=== PATIENT | female | born 1990 | race Caucasian/White ===

== ENCOUNTER 2020-03-01 21:44 | Outpatient (REF) | payer SELFPAY ==
[2020-03-04 10:10] LABS: SARS-CoV-2 RNA Undetected (Undetected); SARS-CoV-2 Specimen Source Nasal
== END 2020-03-01 22:04 ==
LOC: NCHCN 21:44
PROVIDERS: Visit Provider Family Medicine
DX: Z20.828 Contact with and (suspected) exposure to other viral communicable diseases (principal)
CPT/HCPCS: U0003

== ENCOUNTER 2021-02-22 09:46 | Outpatient (CLI) | payer MEDICAID, SELFPAY ==
--- NOTE | 2021-02-22 08:00 | DI.RAD_ITS ---
Exam(s) XR FOOT RT COMPLETE EXAM: XR FOOT RT COMPLETE CLINICAL HISTORY: R foot injury. TECHNIQUE: 2D digital imaging was performed of the right foot. Three images were obtained. AP, obl ique and lateral views were obtained. COMPARISON: CR XR FOOT COMPLETE MIN 3V RT from 02/15/2021 CR XR FOOT COMPLETE MIN 3V RT from 02/15/2021 FINDINGS: BONES: There has been no change in alignment of the comminuted fractures involving the distal aspects of the right 3rd and 4th metatarsals. No new fractures are seen. No bony destructive lesion is see n. JOINTS: No dislocation present. SOFT TISSUE: Normal. IMPRESSION: Stable fractures involving the right 3rd and 4th metatarsals. DATA REPOSITORY: RADIATION DOSE DELIVERED:
== END 2021-02-22 09:47 | disposition home or self-care (01) ==
LOC: DIORS 09:47
PROVIDERS: Referring Provider Family Medicine; Visit Provider Physician Assistant
DX: S92.334D Nondisplaced fracture of third metatarsal bone, right foot, subsequent encounter for fracture with routine healing (principal); S92.344D Nondisplaced fracture of fourth metatarsal bone, right foot, subsequent encounter for fracture with routine healing
CPT/HCPCS: 73630

== ENCOUNTER 2021-03-11 08:42 | Outpatient (CLI) | payer MEDICAID, SELFPAY ==
--- NOTE | 2021-03-11 07:45 | DI.RAD_ITS ---
Exam(s) XR FOOT RT COMPLETE EXAM: XR FOOT RT COMPLETE CLINICAL HISTORY: R metatarsal fractures TECHNIQUE: COMPARISON: CR XR FOOT RT COMPLETE from 02/22/2021 FINDINGS: Three views were obtained. Previous described fractures 3rd and 4th metatarsal heads are again noted and appear to be healing in position, additionally a nondisplaced 2nd metatarsal head fracture is no w noted and appears to be healing as well. IMPRESSION: RADIATION DOSE DELIVERED: Total DLP
== END 2021-03-11 08:43 | disposition home or self-care (01) ==
LOC: DIORS 08:42
PROVIDERS: PCP Family Medicine; Referring Provider Family Medicine; Visit Provider Student in an Organized Health Care Education/Training Program
DX: S92.334D Nondisplaced fracture of third metatarsal bone, right foot, subsequent encounter for fracture with routine healing (principal); S92.344D Nondisplaced fracture of fourth metatarsal bone, right foot, subsequent encounter for fracture with routine healing; S92.324A Nondisplaced fracture of second metatarsal bone, right foot, initial encounter for closed fracture
CPT/HCPCS: 73630

== ENCOUNTER 2021-07-08 10:09 | Outpatient (CLI) | payer OTHER, SELFPAY ==
--- NOTE | 2021-07-08 09:45 | DI.RAD_ITS ---
Exam(s) XR HIP LT COMPLETE AP PELVIS EXAM: XR HIP LT COMPLETE AP PELVIS CLINICAL HISTORY: pain in hip. TECHNIQUE: 2D digital imaging was performed. COMPARISON: No exams were available for comparison FINDINGS: No evidence of pelvic nor hip fracture. Additional lateral view left hip unremarkable. No evidence of avascular necrosis. No joint space narrowing. Bone density in the hips and pelvis is normal. Sa croiliac joints appear unremarkable. IMPRESSION: No significant radiographic findings. DATA REPOSITORY: RADIATION DOSE DELIVERED:
== END 2021-07-08 10:10 | disposition home or self-care (01) ==
LOC: DIORS 10:09
PROVIDERS: PCP Family Medicine; Referring Provider Family Medicine; Visit Provider Physician Assistant Surgical
DX: M25.552 Pain in left hip (principal)
CPT/HCPCS: 73502